=== PATIENT | female | born 1995 | race American Indian/Alaskan Native ===

== ENCOUNTER 2017-05-28 11:59 | Emergency (ER) | payer MEDICAID ==
[2017-05-28 12:47] VITALS: BP 98/67
[2017-05-28] MEDS ORDERED: ULTRAM PO ONE (16:29)
--- NOTE | 2017-05-28 16:31 | Emergency Department Report ---
Blank Doc - Documentation Documentation: Patient is a 21-year-old female who is presenting with right lower abdominal pain for the past 3-4 days. Patient had a elective on 2017. Patient has had no menses started since she denies any vaginal bleeding dysuria vaginal discharge this time. Patient also denies any nausea vomiting fevers or chills. Pain is achy sharp right pelvis and right lower quadrant. Ultrasound of the uterus and appendix will be performed patient was given pain meds are also check a urinalysis and test as well.
== END 2017-05-28 18:24 ==
LOC: ED 11:59
DX: R10.31 Right lower quadrant pain (principal)
CPT/HCPCS: 99283